=== PATIENT | male | born 1945 | race Caucasian/White ===

== ENCOUNTER 2019-03-10 08:45 | Outpatient (CLI) | payer MEDICARE, BC, SELFPAY ==
[2019-03-10 09:37] LABS: HCT 31.7 % (40.0-50.0); HGB 9.9 g/dL (13.5-17.5); Mean Corp. HGB Concentration 31.2 g/dL (32.0-36.0); Mean Corpuscular Hemoglobin 27.2 pg (27.0-33.0); Mean Corpuscular Volume 87.1 fL (80-95); Platelet Count 229 x1000/uL (130-400); RBC 3.64 m/cumm (4.50-6.00); RBC Distribution Width 20.1 % (11.8-14.1); White Blood Cell Count 4.87 k/cumm (4.4-10.8)
[2019-03-10 09:46] LABS: Bilirubin Negative (Negative); Blood Negative (Negative); Clarity Clear; Glucose 250 mg/dL (Negative); Ketones Negative (Negative); Leukocyte Esterase Negative (Negative); Nitrite Negative (Negative); Specific Gravity 1.015 (1.005-1.025); Urobilinogen 0.2 EU/dL (Up TO 0.2)
[2019-03-10 10:01] LABS: Bacteria Negative HPF (Negative); Crystals Negative HPF (Negative); Epithelial Cells Few HPF (Negative); Mucus Trace (Negative); RBC 0-2 (0-2); WBC 0-2 HPF (0-5)
[2019-03-10 10:02] LABS: C & S Indicated? No; Casts 0-2 Fine Granular LPF (Negative)
[2019-03-10 13:14] LABS: PROTEIN 39.7 mg/dL
[2019-03-10 13:15] LABS: Anion Gap 11.7 mmol/L (3-11); BUN 31 mg/dL (7-18); CO2 21.3 mmol/L (21.0-32.0); CREATININE 1.51 mg/dL (0.70-1.30); Chloride 105 mmol/L (98-107); Estimated GFR 45.52 (mL/min/1.73m2); Glucose 55 mg/dL (70-100); Potassium 4.2 mmol/L (3.5-5.1); Sodium 138 mmol/L (136-145)
[2019-03-10 13:17] LABS: COMMENT (LAB VIEW ONLY) 54.16 mg/dL; Prot/Crea Ur Ratio 0.73
[2019-03-11 13:32] LABS: Tacrolimus 6.4 ng/ml
[2019-03-11 15:06] LABS: CMV DNA Detect/Quant, P Undetected IU/mL (Undetected)
[2019-03-12 00:18] LABS: BK Virus PCR, Quant, P Detected
== END 2019-03-10 09:05 ==
PROVIDERS: PCP Internal Medicine Nephrology; Visit Provider Internal Medicine Nephrology
DX: Z94.0 Kidney transplant status (principal); B25.9 Cytomegaloviral disease, unspecified; Z51.81 Encounter for therapeutic drug level monitoring; B34.9 Viral infection, unspecified
CPT/HCPCS: 36415; 80048; 85027; 80197; 81003; 81015; 82565; 84156; 87497; 87799

== ENCOUNTER 2020-03-10 04:08 | Outpatient (CLI) | payer MEDICARE, BC, SELFPAY ==
[2020-03-10 10:57] LABS: HCT 38.1 % (40.0-50.0); HGB 12.5 g/dL (13.5-17.5); Mean Corp. HGB Concentration 32.8 g/dL (32.0-36.0); Mean Corpuscular Hemoglobin 27.7 pg (27.0-33.0); Mean Corpuscular Volume 84.3 fL (80-95); Mean Platelet Volume 9.1 fL (8.0-11.0); Platelet Count 307 x1000/uL (130-400); RBC 4.52 m/cumm (4.50-6.00); RBC Distribution Width 14.6 % (11.8-14.1); White Blood Cell Count 10.46 k/cumm (4.4-10.8)
[2020-03-10 11:03] LABS: Bilirubin Negative (Negative); Blood Negative (Negative); Clarity Clear (Clear); Glucose 250 mg/dL (Negative); Ketones Negative (Negative); Leukocyte Esterase Trace (Negative); Nitrite Negative (Negative); Urobilinogen 0.2 EU/dL (Up TO 0.2); pH 8.5 (5-8)
[2020-03-10 11:16] LABS: Bacteria Negative HPF (Negative); C & S Indicated? Yes; Casts Negative LPF (Negative); Crystals Negative HPF (Negative); Epithelial Cells Rare HPF (Negative); Mucus Negative (Negative); RBC Negative HPF (0-2); WBC 20-50 HPF (0-5)
[2020-03-10 11:36] LABS: Anion Gap 8.3 mmol/L (3-11); BUN 40 mg/dL (7-18); CO2 25.7 mmol/L (21.0-32.0); CREATININE 1.95 mg/dL (0.70-1.30); Calcium 10.1 mg/dL (8.5-10.1); Chloride 103 mmol/L (98-107); Glucose 123 mg/dL (74-106); Potassium 4.6 mmol/L (3.5-5.1); Sodium 137 mmol/L (136-145)
[2020-03-10 11:53] LABS: PROTEIN 23.3 mg/dL
[2020-03-10 11:56] LABS: COMMENT (LAB VIEW ONLY) 53.26 mg/dL; Prot/Crea Ur Ratio 0.43
[2020-03-11 13:29] LABS: Tacrolimus 6.5 ng/mL (See Note)
[2020-03-12 00:20] LABS: BK Virus PCR, Quant, P None Detected
[2020-03-13 15:59] LABS: CMV DNA Detect/Quant, P Undetected IU/mL (Undetected)
== END 2020-03-10 04:28 ==
PROVIDERS: Visit Provider Student in an Organized Health Care Education/Training Program
DX: Z94.0 Kidney transplant status (principal); Z51.81 Encounter for therapeutic drug level monitoring; Z79.899 Other long term (current) drug therapy
CPT/HCPCS: 36415; 80048; 85027; 80197; 81003; 81015; 82565; 84156; 87086; 87497; 87799